=== PATIENT | female | born 1975 | race Caucasian/White ===

== ENCOUNTER → 2016-08-27 | Outpatient (CLI) | payer BC | END | disposition home or self-care (01) | LOC: RAD.S 14:34 | DX: Z12.31 Encounter for screening mammogram for malignant neoplasm of breast (principal); N63 Unspecified lump in breast ==

== ENCOUNTER → 2016-08-30 | Outpatient (CLI) | payer BC | END | disposition home or self-care (01) | LOC: RAD.S 13:20 | DX: R92.8 Other abnormal and inconclusive findings on diagnostic imaging of breast (principal); N60.01 Solitary cyst of right breast; N60.02 Solitary cyst of left breast ==